=== PATIENT | male | born 1960 | race Caucasian/White ===

== ENCOUNTER 2022-07-07 11:53 | Emergency (ER) | payer OTHER ==
[~2022-07-07] VITALS: Ht 167.6 cm; Wt 80.0 kg
[2022-07-07 12:02] VITALS: BP 116/70
== END 2022-07-07 18:22 | disposition left against medical advice (07) ==
LOC: ER 11:53
DX: Z53.21 Procedure and treatment not carried out due to patient leaving prior to being seen by health care provider (principal)